=== PATIENT | female | born 1945 | race Caucasian/White ===

== ENCOUNTER 2017-06-08 07:23 | Emergency (ER) | payer SELFPAY ==
[2017-06-08] MEDS ORDERED: ONDANSETRON HCL/PF 2 MG/ML VIAL IV ONE (08:31)
[2017-06-08] MEDS ORDERED: HYDROmorphone HCL 1 MG/ML DISP.SYRIN IV ONE (08:33)
--- NOTE | 2017-06-08 08:40 | ERNOTE ---
Upper Extremity HPI - General Time Seen by Provider: 06/08/17 08:30 Source: patient Exam Limitations: no limitations - Immun/Allergies/Home Medications Immunizations: IMMUNIZATION HX Immunizations Up to Date No History of Influenza Vaccine No Hx Pneumococcal Vaccination No Allergies/Adverse Reactions: Allergies Allergy/AdvReac Type Severity Reaction Status Date / Time No Known Allergies Allergy Verified 06/08/17 07:36 Home Medications: HOME MEDICATIONS Apixaban [Eliquis] 2.5 mg PO BID tablet 06/18/15 [Last Taken 12/05/15 06:00] Furosemide [Lasix] 40 mg PO DAILY@1100 90 Days 06/18/15 [Last Taken 12/05/15 06: 00] Carvedilol [Coreg] 6.25 mg PO BID #30 tablet 12/14/15 [Last Taken Unknown] Cod Liver Oil/Zinc Oxide [Desitin] 1 appl TP PRN PRN #1 tube 12/14/15 [Last Taken Unknown] Codeine Phosphate/Guaifenesin [Guiatuss AC Syrup] 10 ml PO Q4H PRN #1 udc [Last Taken Unknown] Ipratropium [place] [Atrovent] 0.5 mg IH Q8H PRN #1 vial.neb 12/14/15 [Last Taken Unknown] Lactobacillus Acidophilus [Bacid] 2 cap PO TIDWM #30 btl 12/14/15 [Last Taken Unknown] Levofloxacin [Levaquin] 750 mg PO DAILY@1100 #4 tablet 12/14/15 [Last Taken Unknown] Lisinopril [Zestril] 5 mg PO DAILY #30 tablet 12/14/15 [Last Taken Unknown] Mirtazapine [Remeron] 7.5 mg PO DAILY@2000 #30 tablet 12/14/15 [Last Taken Unknown] Spironolactone [Aldactone] 12.5 mg PO DAILY 90 Days 12/14/15 [Last Taken Unknown ] HYDROcodone/ACETAMINOPHEN [[place] 5-325] 1 - 2 tab PO Q6H PRN #30 tab 06/08/17 [ Last Taken Unknown] - History of Present Illness Narrative: This patient has Right shoulder pain status post fall this morning. This patient is right-handed. Review of Systems - Review of Systems Constitutional: Present: no symptoms reported EYE: Present: no symptoms reported ENT: Present: no symptoms reported Respiratory: Present: no symptoms reported Cardiology: Present: no symptoms reported Gastrointestinal/Abdominal: Present: no symptoms reported Genitourinary: Present: no symptoms reported Musculoskeletal: Present: See HPI - Patient's Past Medical History Patient History - Medical: No pertinent hx Patient History - Cardiac/Respiratory: Atrial Fibrillation, CHF Patient History - Cancer: No Hx of Cancer Patient History - Surgical Procedures: Other Patient History - Other: Other - patient sees a chiropractor occasionally - Family History Father Family History - Medical: Family History - Cardiac/Respiratory: Cardiac Arrest Mother Family History - Medical: , Alzheimer's Disease - Social History Living Situations: home Abuse History: No History of abuse Psych History: No pertinent hx Smoking Status: Never smoker Alcohol Use: none Drug Use: none - Immunizations Immunizations Up to Date: No Hx Pneumococcal Vaccination: No History of Influenza Vaccine: No Physical Exam - Physical Exam General Appearance: Present: wd/wn, alert, no apparent distress Head Exam: Present: normal inspection Ears, Nose, Throat: Present: normal ENT inspection Neck: Present: normal inspection, nontender Respiratory: Present: no respiratory distress, normal breath sounds, no accessory muscle use, chest nontender, lungs clear Cardiovascular/Chest: Present: no murmur, extra beats Gastrointestinal/Abdominal: Present: normal bowel sounds Extremity Exam: Present: other - there is obvious deformity of the right shoulder/proximal humerus noted. Patient is guarding her right upper extremity. Patient is tender upon palpation of the right humerus all over. Distally patient has good strength in the hand and she is able to move elbow and wrist and fingers. There are no open lesions. Neurological Exam: Present: alert, oriented, normal mood/affect ED Progress - Results and Orders Patient's Lab Results:: I have reviewed the patient's lab results. - Vital Signs Patient's Vital Signs:: I have reviewed the patient's vital signs. Vital Signs: Vital Signs 06/08/17 07:28 Temperature 36.4 C L Pulse Rate 81 Respiratory 16 Rate Blood Pressure 152/82 O2 Sat by Pulse 99 Oximetry - Progress/Reassessment Chief Complaint: Shoulder Injury/Pain Plan - Plan Plan: This patient has a proximal humerus fracture on the right side. Dr. Clarence Kothari was consult that in regards to this patient. Dr. Shaw suggested placing the patient in a right shoulder immobilizer treating her pain and sending her home for them to follow him at the clinic next week. Patient is to follow up with Dr. Kumar next week Departure Clinical Impression: Fracture, humerus, head Qualifiers: Encounter type: initial encounter Fracture type: closed Laterality: right Qualified Code(s): S42.291A - Other displaced fracture of upper end of right humerus, initial encounter for closed fracture - Departure Disposition: Home self-care Condition: Good Instructions: Shoulder Fracture (Proximal Humerus or Glenoid)-SportsMed Additional Instructions: Please aware your shoulder immobilizer at all times, please do not use your right upper extremity, please take your medication for pain, please follow-up with Dr. Kumar in the clinic next week. Prescriptions: HYDROcodone/ACETAMINOPHEN [[place] 5-325] 1 - 2 tab PO Q6H PRN #30 tab PRN Reason: Pain
[2017-06-08] MEDS ORDERED: HYDROmorphone HCL 1 MG/ML DISP.SYRIN ONE (08:49)
[2017-06-08] MEDS ORDERED: ONDANSETRON 4 MG TAB.RAPDIS ONE (08:50)
[2017-06-08 08:52] LABS: Hematocrit 38.3 % (37.0-47.0); Hemoglobin 13.1 gm/dL (12.5-16.0); Mean Cell Volume 90.5 fl (78-100); Mean Corpuscular Hgb Conc 34.2 g/dl (32-36); Mean Platelet Volume 9.5 fl (6.0-9.5); Neutrophil # 8.4 K/mm3 (1.3-6.0); Neutrophil % 85.4 % (42-75.0); Platelet Count 161 K/mm3 (150-450); Red Blood Count 4.23 M/mm3 (4.2-5.4); Red Cell Distribution Width 13.3 % (11.5-14.0); White Blood Count 9.8 K/mm3 (4.0-10.5)
[2017-06-08] MEDS ORDERED: HYDROmorphone HCL 1 MG/ML DISP.SYRIN IM ONE (08:57)
[2017-06-08] MEDS ORDERED: ONDANSETRON 4 MG TAB.RAPDIS PO ONE (08:57)
[2017-06-08 09:06] LABS: Albumin * 3.4 gm/dl (3.4-5.0); Anion Gap 11.2 mmol/L (6.8-13.8); BUN/Creatinine Ratio 31.3 (9.0-21.6); Bilirubin, Total 0.7 mg/dL (0.0-1.1); Calcium * 8.8 mg/dL (7.9-10.9); Carbon Dioxide 30.6 mmol/L (24-32.6); Potassium 3.8 mmol/L (3.4-4.6); Total Protein 6.9 gm/dL (6.2-8.2)
[2017-06-08 11:07] VITALS: BP 122/86
== END 2017-06-08 09:30 | disposition home or self-care (01) ==
LOC: ER 07:23
PROC: 2W3AXYZ Immobilization of Right Upper Arm using Other Device (ICD-10-PCS; principal; 2017-06-08)
DX: S42.291A Other displaced fracture of upper end of right humerus, initial encounter for closed fracture (principal); W19.XXXA Unspecified fall, initial encounter; Y93.9 Activity, unspecified; Y92.9 Unspecified place or not applicable; Y99.9 Unspecified external cause status